=== PATIENT | male | born 1945 | race Caucasian/White ===

== ENCOUNTER 2018-04-12 00:16 | Observation (INO) ==
--- NOTE | 2018-04-12 00:44 | ED ---
HPI General Chief Complaint: Chest Pain Stated Complaint: Chest Pain/AFIB since 2329 Time Seen by Provider: 04/12/18 00:25 Source: patient Mode of arrival: ambulatory Limitations: no limitations History of Present Illness HPI narrative: 73-year-old male presents to the emergency department by private transportation the care of his spouse for complaint of chest pain onset approximately 1 hour ago while trying to go to bed at rest. Patient states pain was initially 7/10 in intensity is presently 1/10 in intensity. Patient is taken no medications. Patient noticed that he was having palpitations and irregular rhythm. Patient has prior history of atrial fibrillation but is currently on no medications for atrial fibrillation. Patient was followed by cardiology for approximately a year after diagnosis of A. fib in 2013. Patient was briefly on Eliquis. Patient takes no blood thinning agents at this time. Patient took no aspirin prior to arrival to the emergency department. Patient denies taking any prescription medications. Patient does admit to drinking alcohol this evening. No recent long distance travel protracted bedrest. Patient denies any referred neck jaw back shoulder arm pain. Patient denies any shortness of breath or sweats. Patient denies any nausea or vomiting. Patient did try to check his pulse rate using his 's home pulse oximeter but the rate was apparently too fast for the device to tile picker his pulse. Patient had no dizziness near syncope or syncope. Patient had a negative nuclear stress test in 2013. MD complaint: Reports chest pain STEMI Alert: No Onset (ago): hour(s) (1) Time: 00:38 Duration: constant Onset: during rest Pain location: Reports substernal Severity: moderate Severity scale (1-10): 7 Quality: Reports tightness, aching and heaviness; Denies sharp, dull, ripping and similar to prior [facility] Pain radiation: Reports none Relieving factors: nothing Exacerbating factors: nothing Context: Denies recent illness, recent surgery, recent immobilization, recent travel, trauma/injury, new medications and history of DVT/PE Associated symptoms: Reports palpitations (increased heart rate reminded him of prior a fib); Denies nausea, vomiting, diaphoresis, dyspnea, sense of impending doom and syncope Treatments prior to arrival chest pain: Reports none Related Data Home Medications Medication Instructions Recorded Confirmed No Known Home Medications 04/12/18 04/12/18 Allergies Allergy/AdvReac Type Severity Reaction Status Date / Time No Known Allergies Allergy Verified 04/12/18 00:31 Review of Systems ROS: all other systems reviewed are negative [facility] Medical History Medical History Atrial fibrillation (Acute) Surgical History Surgical History No history of previous surgery (Acute) Social History Social History Substance History: No History of Abuse Smoking Status: Never smoker How Often Do You Have a Drink Containing Alcohol: 2 to 3 times a week Recent Out of Country Travel within the Last 8 Weeks: No Immunization History Tetanus Immunization: <5 Years Exam Narrative Exam Narrative: GENERAL: Well-nourished, well-developed patient. No acute distress no respiratory distress; GCS 15. SKIN: Focused skin assessment warm/dry. HEAD: Normocephalic. EYES: No scleral icterus. No injection or drainage. NECK: Supple, trachea midline. No JVD or lymphadenopathy. CARDIOVASCULAR: Intermittently increased irregularly irregular rate and rhythm without murmurs, gallops, or rubs. No murmur. RESPIRATORY: Breath sounds equal bilaterally. No accessory muscle use. GASTROINTESTINAL: Abdomen soft, non-tender, nondistended. MUSCULOSKELETAL: No cyanosis, or edema. Radial dorsalis pedis pulses 2+ to palpation. BACK: Nontender without obvious deformity. No CVA tenderness. Course Initial Documented Vital Signs Temperature 97.9 F 04/12/18 00:20 Pulse Rate 115 H 04/12/18 00:20 Respiratory Rate 20 04/12/18 00:20 Blood Pressure 158/81 H 04/12/18 00:20 Pulse Oximetry 98 04/12/18 00:20 Last Documented Vital Signs Temperature 97.9 F 04/12/18 00:20 Pulse Rate 86 04/12/18 02:26 Respiratory Rate 18 04/12/18 02:26 Blood Pressure 138/75 04/12/18 02:26 Pulse Oximetry 99 04/12/18 02:26 Medical Decision Making MDM Narrative Medical decision making narrative: 73-year-old male presents with complaint of chest pain 1/10 in intensity after onset an hour ago at 7/10 in intensity with atrial fibrillation. Patient placed on monitor car operator IV access obtained specimens collected and sent for resulting EKG performed shows atrial fibrillation with right bundle branch block with no acute ST elevation or injury pattern. Vagal maneuvers attempted without success. Patient administered aspirin. Patient's rate spontaneously has decreased to 88-114. Specimens collected and sent for resulting. Patient denies any chest pain at this time. Troponin I less than 0.02, not at: Hypokalemia potassium 3.1 given oral replacement of potassium 40 mEq renal insufficiency BUN 24 creatinine 1.50 patient given bolus of normal saline Rate is controlled after Cardizem 10 mg IV x1 dose. Chest pain resolved after rate control currently 0/10 in intensity patient has received aspirin 324 mg x1 dose. Plan will be to admit for serial cardiac enzymes at this point time rate is controlled has not seen grinding wheel inspector in greater than 2 years will discuss case with on-call [facility] provider regarding observation to chest pain center per protocol with episode of paroxysmal atrial fibrillation with RVR now rate controlled versus observation to [facility] service. Discussed with Dr Garcia requests admit obs to [facility]; call placed to Dr Montalvo will accept OBS to [facility] per protocol Medical Screen Exam Complete: Yes Emergency Medical Condition: Yes Differential Diagnosis Differential Diagnosis: Paroxysmal atrial fibrillation with RVR, chest pain, ACS , VA, holiday heartalcohol consumption, thyroid dysfunction, electrolyte disturbance, Medical Records Medical records reviewed: Yes I reviewed the patient's medical records. Lab Data Lab results reviewed: Yes I reviewed the patient's lab results. Result diagrams: 04/12/18 00:30 04/12/18 00:30 Lab Results 04/12/18 04/12/18 04/12/18 Range/Units 00:30 00:30 00:30 CBC w Diff Auto diff final WBC 8.7 (4.0-11.0) th/mm3 RBC 5.04 (4.50-5.90) mil/mm3 Hgb 16.2 (13.0-17.0) gm/dL Hct 48.0 (39.0-51.0) % MCV 95.3 (80.0-100.0) fL MCH 32.2 (27.0-34.0) pg MCHC 33.8 (32.0-36.0) % RDW 12.9 (11.6-17.2) % Plt Count 238 (150-450) th/mm3 MPV 9.0 (7.0-11.0) fL Neut % (Auto) 48.9 (16.0-70.0) % Lymph % (Auto) 37.3 (9.0-44.0) % [place] % (Auto) 10.7 H (0.0-8.0) % Eos % (Auto) 2.1 (0.0-4.0) % Baso % (Auto) 1.0 (0.0-2.0) % Neut # (Auto) 4.3 (1.8-7.7) th/mm3 Lymph # (Auto) 3.2 (1.0-4.8) th/mm3 [place] # (Auto) 0.9 (0.0-0.9) th/mm3 Eos # (Auto) 0.2 (0.0-0.4) th/mm3 Baso # (Auto) 0.1 (0.0-0.2) th/mm3 WBC Differential . Differential Comment . PT 10.2 (9.8-11.6) sec INR 1.0 Ratio APTT 28.0 (23.4-31.7) sec Sodium (136-145) meq/L Potassium (3.5-5.1) meq/L Chloride (98-107) meq/L Carbon Dioxide (21.0-32.0) meq/L Anion Gap (5-15) meq/L BUN (7-18) mg/dL Creatinine (0.60-1.30) mg/dL Estimated GFR (>89) mL/min Random Glucose (74-106) mg/dL Calcium (8.5-10.1) mg/dL Magnesium (1.5-2.5) mg/dL Total Bilirubin (0.2-1.0) mg/dL AST (15-37) U/L ALT (12-78) U/L Alkaline Phosphatase (45-117) U/L Troponin I (0.02-0.05) ng/mL B-Natriuretic Peptide 30 (0-100) pg/mL Total Protein (6.4-8.2) g/dL Albumin (3.4-5.0) g/dL TSH (0.358-3.740) uIU/mL Serum Alcohol (0-5) mg/dL 04/12/18 Range/Units 00:30 CBC w Diff WBC (4.0-11.0) th/mm3 RBC (4.50-5.90) mil/mm3 Hgb (13.0-17.0) gm/dL Hct (39.0-51.0) % MCV (80.0-100.0) fL MCH (27.0-34.0) pg MCHC (32.0-36.0) % RDW (11.6-17.2) % Plt Count (150-450) th/mm3 MPV (7.0-11.0) fL Neut % (Auto) (16.0-70.0) % Lymph % (Auto) (9.0-44.0) % [place] % (Auto) (0.0-8.0) % Eos % (Auto) (0.0-4.0) % Baso % (Auto) (0.0-2.0) % Neut # (Auto) (1.8-7.7) th/mm3 Lymph # (Auto) (1.0-4.8) th/mm3 [place] # (Auto) (0.0-0.9) th/mm3 Eos # (Auto) (0.0-0.4) th/mm3 Baso # (Auto) (0.0-0.2) th/mm3 WBC Differential Differential Comment PT (9.8-11.6) sec INR Ratio APTT (23.4-31.7) sec Sodium 140 (136-145) meq/L Potassium 3.1 L (3.5-5.1) meq/L Chloride 105 (98-107) meq/L Carbon Dioxide 23.1 (21.0-32.0) meq/L Anion Gap 12 (5-15) meq/L BUN 24 H (7-18) mg/dL Creatinine 1.50 H (0.60-1.30) mg/dL Estimated GFR 46 L (>89) mL/min Random Glucose 99 (74-106) mg/dL Calcium 8.7 (8.5-10.1) mg/dL Magnesium 2.2 (1.5-2.5) mg/dL Total Bilirubin 0.5 (0.2-1.0) mg/dL AST 23 (15-37) U/L ALT 28 (12-78) U/L Alkaline Phosphatase 106 (45-117) U/L Troponin I Less than 0.02 L (0.02-0.05) ng/mL B-Natriuretic Peptide (0-100) pg/mL Total Protein 8.0 (6.4-8.2) g/dL Albumin 4.1 (3.4-5.0) g/dL TSH 4.510 H (0.358-3.740) uIU/mL Serum Alcohol 9 H (0-5) mg/dL Imaging Data Radiologist's impression: Chest X-Ray 04/12/18 00:26 CONCLUSION: No acute cardiopulmonary disease identified. ECG Data EKG Prior to Arrival: No Attestation: I personally reviewed and interpreted this ECG as follows: ( EKG: Atrial fibrillation with RVR rate 108-130 right bundle branch block left anterior fascicular block no acute ST elevation or injury pattern) Prior ECG tracings: available for review Discharge Plan Physicians Team ED Provider: Smitha Saldana Primary Care Provider: Wolfgang Gabriel Rxs /Orders / Referrals /Forms Prescriptions: No Action No Known Home Medications RF: 0 Status ED Status: Ready for Discharge
[2018-04-12 00:52] LABS: Baso # (Auto) 0.1 th/mm3 (0.0-0.2); Eos # (Auto) 0.2 th/mm3 (0.0-0.4); Eos % (Auto) 2.1 % (0.0-4.0); Hemoglobin 16.2 gm/dL (13.0-17.0); Lymph # (Auto) 3.2 th/mm3 (1.0-4.8); Lymph % (Auto) 37.3 % (9.0-44.0); Mean Corpuscular HGB Conc 33.8 % (32.0-36.0); Mean Corpuscular Hemoglobin 32.2 pg (27.0-34.0); Mean Corpuscular Volume 95.3 fL (80.0-100.0); Mono # (Auto) 0.9 th/mm3 (0.0-0.9); Mono % (Auto) 10.7 % (0.0-8.0); Neut # (Auto) 4.3 th/mm3 (1.8-7.7); Neut % (Auto) 48.9 % (16.0-70.0); Platelet Count 238 th/mm3 (150-450); Red Blood Count 5.04 mil/mm3 (4.50-5.90); Red Cell Distribution Width 12.9 % (11.6-17.2); White Blood Count 8.7 th/mm3 (4.0-11.0)
[2018-04-12 00:59] LABS: Chloride 105 meq/L (98-107); Potassium 3.1 meq/L (3.5-5.1); Sodium 140 meq/L (136-145)
[2018-04-12] MEDS ORDERED: Sodium Chlor 0.9% Inj 500 ML IV.SIG SCH (01:00)
[2018-04-12 01:02] LABS: Calcium 8.7 mg/dL (8.5-10.1)
[2018-04-12 01:03] LABS: Albumin 4.1 g/dL (3.4-5.0); Anion Gap 12 meq/L (5-15); Blood Urea Nitrogen 24 mg/dL (7-18); Carbon Dioxide 23.1 meq/L (21.0-32.0); Glucose,Random 99 mg/dL (74-106); Magnesium 2.2 mg/dL (1.5-2.5); Prothrombin Time 10.2 sec (9.8-11.6)
[2018-04-12 01:06] LABS: Alanine Aminotransferase 28 U/L (12-78); Aspartate Aminotransferase 23 U/L (15-37); Glomerular Filtration Rate 46 mL/min (>89)
[2018-04-12 01:07] LABS: Alcohol 9 mg/dL (0-5)
[2018-04-12 01:09] LABS: Alkaline Phosphatase 106 U/L (45-117)
--- NOTE | 2018-04-12 01:09 | XR ---
EXAM DATE: 04/12/2018 12:48 AM EST AGE/SEX: 73 years / Male INDICATIONS: Chest pain and elevated heart rate. CLINICAL DATA: This is the patient's initial encounter. Patient reports that signs and symptoms have been present for 1 day and indicates a pain score of 5/10. MEDICAL/SURGICAL HISTORY: None. None. COMPARISON: No prior exams available for comparison. FINDINGS: Single AP view the chest. The lungs are clear. Cardiomediastinal silhouette within normal limits. No evidence of pleural effusion or pneumothorax. CONCLUSION: No acute cardiopulmonary disease identified. Electronically signed by: Case Baumann MD 04/12/2018 1:07 AM EST
[2018-04-12] MEDS ORDERED: Metoprolol Tartrate 25 MG Tablet PO ONE (02:22)
[2018-04-12 04:00] LABS: Creatine Kinase 260 U/L (39-308)
[2018-04-12 05:08] VITALS: TEMP 98.7; O2SAT 99
[2018-04-12 07:24] LABS: Troponin I 0.04 ng/mL (0.02-0.05)
--- NOTE | 2018-04-12 08:11 | P.HP ---
History of Present Illness Primary Care Physician: Wolfgang Gabriel MD Chief Complaint: Chest pain History of Present Illness: 73-year-old male with known history of atrial fibrillation who presented to the hospital for episode of chest pain. Patient states that he was in normal state of health last night and went to bed and at approximately 11 PM he woke up with sudden onset of midsternal chest pain without any radiation to neck, back, shoulder, arm. He states that of 7/10 on a pain scale. He checked his pulse and noticed that he was in atrial fibrillation. The pain lasted for approximately 20 minutes while he was at his house and did not resolve. He decided to come to the emergency department for evaluation. Upon presentation patient had heart rate of 119 in atrial fibrillation. Vagal maneuvers were attempted without success. Patient was given Cardizem 10 mg IV x1 with improvement of his heart rate. Patient states that he continued to have chest pain in the emergency department for approximately 30 minutes and it resolved on its own. Patient states that he had been followed by marketing teacher Dr. Santa years ago for atrial fibrillation. Patient has not any medications for rate control. Patient was told that he did not need to take anticoagulation. ER physician did call [facility] and they recommended that the patient be observed in the chest pain center. Currently the patient is asymptomatic. Rate is controlled. Patient continues to be in atrial fibrillation. - Diagnosis (1) Atrial fibrillation (2) Chest pain Review of Systems All other systems reviewed negative except as stated in HPI Cardiovascular: Reports chest pain, Reports irregular heart rhythm PMF - History History Provided By: Patient - Medical History Medical History: Medical History (Last Reviewed 04/12/18 @ 08:03 by KAY Tomlin) Atrial fibrillation - Surgical History Surgical History: Surgical History (Last Reviewed 04/12/18 @ 08:04 by KAY Tomlin) No history of previous surgery - Family History Family History: Family History (Last Updated 04/12/18 @ 08:04 by KAY Tomlin) Mother Family history of breast cancer Father Family history of stroke - Tobacco History Second Hand Smoke Exposure: No Smoking Status: Never smoker - Alcohol History How Often Do You Have a Drink Containing Alcohol: 2 to 3 times a week - Substance Use History Substance History: No History of Abuse - Travel History Recent Travel Out of the Country Within the Last 8 Weeks: No - Immunization History Tetanus Immunization: Never Vaccinated Hx Influenza Vaccine This Season: Yes Medications and Allergies Active Medications: Active Medications Aspirin (Aspirin) 325 mg PO DAILY MICHELET Nitroglycerin (Nitrostat Sl) 0.4 mg SL Q5M PRN PRN Reason: CHEST PAIN Sodium Chloride (Ns Flush) 2 ml IV.FLUSH UNSCH PRN PRN Reason: FLUSH AFTER USING IV ACCESS Sodium Chloride (Ns Flush) 2 ml IV.FLUSH PRN PRN PRN Reason: FLUSH AFTER USING IV ACCESS Sodium Chloride (Ns Flush) 2 ml IV.FLUSH BID MICHELET Allergies Allergy/AdvReac Type Severity Reaction Status Date / Time No Known Allergies Allergy Verified 04/12/18 00:31 Home Medications Medication Instructions Recorded Confirmed Type No Known Home Medications 04/12/18 04/12/18 History Exam Vital signs: Vital Signs 04/12/18 00:20 04/12/18 00:47 04/12/18 00:48 Temperature 97.9 F Pulse Rate 115 H Respiratory Rate 20 Blood Pressure 158/81 H 156/73 H 148/86 H Pulse Oximetry 98 04/12/18 00:52 04/12/18 01:56 04/12/18 02:26 Temperature Pulse Rate 92 H 83 86 Respiratory Rate 18 18 Blood Pressure 134/64 138/75 Pulse Oximetry 99 98 99 04/12/18 03:30 04/12/18 03:36 04/12/18 04:00 Temperature 98.7 F Pulse Rate 82 63 Respiratory Rate 18 18 Blood Pressure 119/70 133/66 Pulse Oximetry 98 98 99 04/12/18 05:16 Temperature Pulse Rate 63 Respiratory Rate Blood Pressure Pulse Oximetry Intake & Output 04/11/18 04/12/18 04/12/18 18:59 06:59 18:59 Intake Total 500 / 500 0 / 0 Output Total 1000 / 1000 0 / 0 Balance -500 / -500 0 / 0 Weight 73.3 kg Intake: IV 500 / 500 NS Inj 500 ML @ 1000 mls/hr IV. 500 / 500 SIG BOLUS MICHELET Rx#:[id number] Oral 0 / 0 Output: Urine 1000 / 1000 0 / 0 Other: # Bowel Movements 0 Weight On Admission 73.3 kg Narrative: GENERAL: Well-developed, well-nourished, in no acute distress. alert and orientated HEENT: Head is normocephalic without any lesions or masses noted. Facial features are symmetric. Eyes: Pupils equal round reactive to light. Extraocular muscles are intact. Conjunctivae were clear. Oropharyngeal: Pharynx without any erythema edema. Tongue is midline without deviation. Buccal mucosa is moist without any masses or lesions NECK: Supple without any masses. Trachea midline no deviation. No JVD, no bruits are appreciated CARDIAC: Irregular rhythm, irregular rate. S1/S2 are heard. No murmurs gallops or rubs. LUNGS: Clear to auscultation bilaterally. No wheeze, rhonchi or rales. No use of accessory muscles on inspiration or expiration. ABDOMEN: Soft, nontender. Nondistended. Bowel sounds heard in all 4 quadrants. No organomegaly or masses. Negative rebound, negative guarding EXTREMITIES: No edema, pulses are equal bilaterally. No cyanosis or clubbing NEUROLOGY: Mood and affect appear appropriate. Cranial nerves II through XII grossly intact. Muscle strength 5/5 in upper and lower extremities bilaterally. Deep tendon reflexes are 2+ in upper and lower extremities bilaterally. Results - Labs CBC & Chem 7: 04/12/18 00:30 04/12/18 06:50 Labs: Laboratory Results - last 24 hr 04/12/18 04/12/18 04/12/18 00:30 00:30 00:30 CBC w Diff Auto diff final WBC 8.7 RBC 5.04 Hgb 16.2 Hct 48.0 MCV 95.3 MCH 32.2 MCHC 33.8 RDW 12.9 Plt Count 238 MPV 9.0 Neut % (Auto) 48.9 Lymph % (Auto) 37.3 [place] % (Auto) 10.7 H Eos % (Auto) 2.1 Baso % (Auto) 1.0 Neut # (Auto) 4.3 Lymph # (Auto) 3.2 [place] # (Auto) 0.9 Eos # (Auto) 0.2 Baso # (Auto) 0.1 WBC Differential . Differential Comment . PT 10.2 INR 1.0 APTT 28.0 Sodium Potassium Chloride Carbon Dioxide Anion Gap BUN Creatinine Estimated GFR Random Glucose Calcium Magnesium Total Bilirubin AST ALT Alkaline Phosphatase Total Creatine Kinase Troponin I B-Natriuretic Peptide 30 Total Protein Albumin TSH Serum Alcohol 04/12/18 04/12/18 04/12/18 00:30 03:30 06:50 CBC w Diff WBC RBC Hgb Hct MCV MCH MCHC RDW Plt Count MPV Neut % (Auto) Lymph % (Auto) [place] % (Auto) Eos % (Auto) Baso % (Auto) Neut # (Auto) Lymph # (Auto) [place] # (Auto) Eos # (Auto) Baso # (Auto) WBC Differential Differential Comment PT INR APTT Sodium 140 Potassium 3.1 L Chloride 105 Carbon Dioxide 23.1 Anion Gap 12 BUN 24 H Creatinine 1.50 H Estimated GFR 46 L Random Glucose 99 Calcium 8.7 Magnesium 2.2 Total Bilirubin 0.5 AST 23 ALT 28 Alkaline Phosphatase 106 Total Creatine Kinase 260 225 Troponin I Less than 0.02 L Less than 0.02 L 0.04 B-Natriuretic Peptide Total Protein 8.0 Albumin 4.1 TSH 4.510 H Serum Alcohol 9 H - Imaging Impressions Chest X-Ray 04/12/18 00:26 CONCLUSION: No acute cardiopulmonary disease identified. Caprini VTE Risk Assessment Caprini VTE Risk Assessment: Moderate/High Risk (score >= 2) Caprini Risk Assessment Model: Point Value = 1 Point Value = 2 Point Value = 3 Point Value = 5 Age 41-60 Minor surgery BMI > 25 kg/m2 Swollen legs Varicose veins or History of unexplained or recurrent spontaneous Oral contraceptives or hormone replacement Sepsis (< 1 month) Serious lung disease, including pneumonia (< 1 month) Abnormal pulmonary function Acute myocardial infarction Congestive heart failure (< 1 month) History of inflammatory bowel disease Medical patient at bed rest Age 61-74 Arthroscopic surgery Major open surgery (> 45 min) Laparoscopic surgery (> 45 min) Malignancy Confined to bed (> 72 hours) Immobilizing plaster cast Central venous access Age >= 75 History of VTE Family history of VTE Factor V Leiden Prothrombin [id number] Lupus anticoagulant Anticardiolipin antibodies Elevated serum homocysteine Heparin-induced thrombocytopenia Other congenital or acquired thrombophilia Stroke (< 1 month) Elective arthroplasty Hip, pelvis, or leg fracture Acute spinal cord injury (< 1 month) Prophylaxis Regimen: Total Risk Factor Score Risk Level Prophylaxis Regimen 0-1 Low Early ambulation 2 Moderate Order ONE of the following: *Sequential Compression Device (SCD) *Heparin 5000 units SQ BID 3-4 Higher Order ONE of the following medications: *Heparin 5000 units SQ TID *Enoxaparin/Lovenox 40 mg SQ daily (WT < 150 kg, CrCl > 30 mL/min) *Enoxaparin/Lovenox 30 mg SQ daily (WT < 150 kg, CrCl > 10-29 mL/min) *Enoxaparin/Lovenox 30 mg SQ BID (WT < 150 kg, CrCl > 30 mL/min) AND/OR *Sequential Compression Device (SCD) 5 or more Highest Order ONE of the following medications: *Heparin 5000 units SQ TID (Preferred with Epidurals) *Enoxaparin/Lovenox 40 mg SQ daily (WT < 150 kg, CrCl > 30 mL/min) *Enoxaparin/Lovenox 30 mg SQ daily (WT < 150 kg, CrCl > 10-29 mL/min) *Enoxaparin/Lovenox 30 mg SQ BID (WT < 150 kg, CrCl > 30 mL/min) AND *Sequential Compression Device (SCD) Assessment and Plan - Assessment (1) Atrial fibrillation Code(s): I48.91 - Unspecified atrial fibrillation Status: Acute (2) Chest pain Code(s): R07.9 - Chest pain, unspecified Status: Acute - Plan Chest pain, atypical -Patient with minimal risk factors to include age, male -Patient has been ruled out for acute coronary event with serial cardiac enzymes which remain negative -Serial EKGs were reviewed by myself which continue to show atrial fibrillation -Myocardial perfusion study was performed and indicated normal exam, no signs of ischemia, low risk -Continue aspirin, nitroglycerin as needed Atrial fibrillation -Patient does have history of atrial fibrillation, was managed by Dr. Santa in the past, was released from his care roughly 3 years ago -Patient had hypokalemia upon presentation was could have caused the patient to go back into atrial fibrillation, -CHADS score is 0,chads/vasc score is 1 with a 0.6% unadjusted stroke rate -Discussed with patient that he should remain on full dose aspirin -Patient should follow-up with Dr. Santa upon discharge Hypokalemia -Continue monitor replete as needed Azotemia, improved -Unknown whether chronic versus acute -Continue IV fluid -Monitor renal function Elevated TSH, likely sick euthyroid -Free T4 and free T3 were normal DVT prevention Sequential compression devices- Discharge Planning: Discharge home in stable condition Activity: Ad sylvester. Diet: Healthy heart diet Medication per medication reconciliation Follow-up with primary medical doctor in 1 week
[2018-04-12 08:33] LABS: Calcium 7.9 mg/dL (8.5-10.1); Carbon Dioxide 22.1 meq/L (21.0-32.0); Magnesium 2.3 mg/dL (1.5-2.5); Potassium 4.5 meq/L (3.5-5.1)
[2018-04-12] MEDS ORDERED: Aspirin 325 MG Tablet PO SCH (09:00)
[2018-04-12] MEDS ORDERED: Regadenoson Inj 0.4 MG/5 ML Syringe IV.PUSH ONE (09:53)
[2018-04-12 10:33] LABS: Free T4 (Free Thyroxine) 0.96 ng/dL (0.76-1.46); Triiodothyronine (T3) Free 3.04 pg/mL (2.18-3.98)
--- NOTE | 2018-04-12 11:19 | NM ---
EXAM DATE: 04/12/2018 10:52 AM EST AGE/SEX: 73 years / Male INDICATIONS:Atrial Fibrillation. Angina Chest pain. CLINICAL DATA: This is the patient's initial encounter. Patient reports that signs and symptoms have been present for 1 day and indicates a pain score of 7/10. MEDICAL/SURGICAL HISTORY: . None. COMPARISON: [facility], MYOCARDIAL PERF PHARM SPECT, 06/25/2013. . DOSE: 8.3 mCi Tc 99m Myoview at rest 27.1 mCi [id number] at stress 0.4 mg Lexiscan STRESS SYMPTOMS: Dyspnea. EJECTION FRACTION: > 70 % TECHNIQUE: The patient underwent pharmacologic stress with infusion of prescribed dose. Continuous ECG tracing was monitored during stress. Gated SPECT imaging was performed after stress and conventi onal SPECT imaging was performed at rest. The examination was performed on a SPECT/CT scanner, both attenuation and non-corrected datasets were reviewed. FINDINGS: Distribution: The maximum perfused segment at stress is in the anterolateral wall. Perfusion Study: The pattern of perfusion at stress is within normal limits. Gated Study: There are intact wall motion and wall thickening without hypokinetic or dyskinetic segm ents. The ejection fraction is calculated at > 70%. RISK CATEGORY: Low (<1% Annual Motality Rate) CONCLUSION: 1. Stable myocardial perfusion scan without evidence of fixed or reversible perfusion abnormalities. 2. Normal wall motion and ejection fraction. Electronically signed by: Owen Church MD 04/12/2018 11:18 AM EST
[2018-04-12 12:02] VITALS: BP 137/62; PULSE 46; RESP 20
--- NOTE | 2018-04-12 12:23 | ECG ---
Date Performed: 04/12/2018 Time Performed: 06:27:32 PTAGE: 73 years EKG: ATRIAL FIBRILLATION INDETERMINATE AXIS RIGHT BUNDLE BRANCH BLOCK ABNORMAL ECG Since the PREVIOUS TRACING , no significant change noted PREVIOUS TRACIN04/12/2018 03.34 DOCTOR: Julián White Interpretating Date/Time 04/12/2018 12:21:11
--- NOTE | 2018-04-12 14:46 | ECG ---
Date Performed: 04/12/2018 Time Performed: 00:23:16 PTAGE: 73 years EKG: ATRIAL FIBRILLATION WITH RAPID VENTRICULAR RESPONSE RIGHT BUNDLE BRANCH BLOCK LEFT ANTERIOR FASCICULAR BLOCK ABNORMAL ECG Compared to PREVIOUS TRACING Patient is no longer in Sinus rhythm PREVIOUS TRACIN06/23/2013 19.14 DOCTOR: Julián White Interpretating Date/Time 04/12/2018 14:45:16
--- NOTE | 2018-04-12 14:46 | ECG ---
Date Performed: 04/12/2018 Time Performed: 03:34:38 PTAGE: 73 years EKG: ATRIAL FIBRILLATION BORDERLINE LEFT AXIS DEVIATION RIGHT BUNDLE BRANCH BLOCK ABNORMAL ECG C ompared to PREVIOUS TRACING ventricular rate is now controlled PREVIOUS TRACIN04/12/2018 00.23 DOCTOR: Julián White Interpretating Date/Time 04/12/2018 14:45:47
--- NOTE | 2018-04-12 18:01 | TR ---
Date Performed: 04/12/2018 Time Performed: 10:14:16 DOCTOR: Savana Dallas DRUG LIST: CLINICAL HISTORY: REASON FOR TEST: Chest pain REASON FOR ENDING: OBSERVATION: CONCLUSION: Lexiscan stress test was performed under standard four minute protocol. Radionuclid e was injected one minute prior to ending the test. No electrocardiographic abormalities were present to suggest ischemia. Nuclear imaging and interpretation are pending. COMMENTS: Lexiscan stress test was performed under standard four minute protocol. Radionuclide was injected one minute prior to ending the test. No electrocardiographic abormalities were present t o suggest ischemia. Nuclear imaging and interpretation are pending.
== END 2018-04-12 12:40 | disposition home or self-care (01) ==
LOC: PHEDA 00:16 → PHED 00:16 → PHEDA 03:52 → PHICU 05:15
PROVIDERS: ADMIT Hospitalist; ATTEND Hospitalist